=== PATIENT | male | born 1970 | race Caucasian/White ===

== ENCOUNTER 2020-02-23 23:17 | Emergency (ER) | payer OTHER, SELFPAY ==
[2020-02-23 23:21] VITALS: PULSE 62; RESP 20; TEMP 36.4; O2SAT 100
[2020-02-23 23:29] VITALS: BP 128/79; PULSE 64; RESP 16; O2SAT 100
--- NOTE | 2020-02-23 23:32 | ED.DIZZY ---
HPI - Dizziness General Chief Complaint: Dizziness Stated Complaint: dizziness tonight Time Seen by Provider: 02/23/20 23:21 Source: patient Mode of arrival: ambulatory Limitations: no limitations History of Present Illness HPI Narrative: This patient is a 49 year old male who presents for evaluation of vertigo. He reports starting 2 days ago he was having intermittent small episodes of vertigo. Tonight while at work he had an episode with nausea and room spinning. He reports history of vertigo in the past, and he did not want to let episode become as severe. He denies having dizziness now. He denies focal deficits, headache, nausea or vomiting. Related Data Allergies Allergy/AdvReac Type Severity Reaction Status Date / Time No Known Allergies Allergy Verified 02/23/20 23:30 Review of Systems Review of Systems: All systems reviewed & are unremarkable except as noted in HPI and below Constitutional: Constitutional: Denies chills and Denies fever(s) Eyes: Eyes: Reports no additional eye complaints ENT: Denies nasal congestion and Denies sore throat Cardiovascular: Cardiovascular: Denies chest pain Respiratory: Respiratory: Denies dyspnea Gastrointestinal: Gastrointestinal: Denies abdominal pain, Denies nausea and Denies vomiting Neurologic: Reports vertigo, Reports dizziness, Denies headache(s), Denies focal weakness, Denies numbness and Denies weakness PMFSH Past Medical History Medical History (Updated 02/24/20 @ 00:40 by Cecille Nolen MD) Heart block Pacemaker Surgical History Surgical History (Updated 02/23/20 @ 23:33 by Cecille Nolen MD) H/O neck surgery Social History Social History (Updated 02/23/20 @ 23:33 by Cecille Nolen MD) Smoking status: Current every day smoker Alcohol intake: current Alcohol use details: occasional Exam Narrative: Exam Narrative: GENERAL: Well-appearing, well-nourished, and in no acute distress. HEAD: Normocephalic, atraumatic EYES: PERRLA and EOMI, conjunctiva clear without discharge EARS: TM's clear bilaterally without erythema or dullness NOSE: Nares clear, no rhinorrhea or epistaxis THROAT:Mucous membranes moist, Oropharynx normal without erythema, exudate, peritonsillar swelling or fluctuance NECK: Supple, without lymphadenopathy or mass RESPIRATORY: No respiratory distress, Airway patent, Respirations non-labored, Clear to auscultation without rales, rhonchi or wheeze HEART: Regular rate and rhythm. No murmur heard. Normal peripheral pulses. ABDOMEN: Soft, nontender, nondistended, normal active bowel sounds. No masses. No rebound or guarding, No organomegaly. EXTREMITIES: No edema, normal strength with full range of motion. SKIN: Warm, dry, normal color without rash NEURO: Alert and oriented x3. CN 2-12 grossly intact. No focal deficits. steady gait PSYCH: Normal mood and affect. Course Reevaluation(s) Reevaluation #1: PAtient continues to have no vertigo. He is able to ambulate with steady gait. Date: 02/24/20 Time: 00:40 Vital Signs Vital signs: Vital Signs Temperature 97.6 F 02/23/20 23:21 Pulse Rate 62 02/23/20 23:21 Respiratory Rate 20 02/23/20 23:21 Pulse Oximetry 100 02/23/20 23:21 Temperature 97.6 F 02/23/20 23:21 Pulse Rate 57 L 02/24/20 00:53 Respiratory Rate 16 02/24/20 00:53 Blood Pressure 115/70 02/24/20 00:53 Pulse Oximetry 99 02/24/20 00:53 MDM - Dizziness ECG Data EKG #1: Attestation: I personally reviewed and interpreted this ECG as follows: ECG completion date: 02/23/20 ECG completion time: 23:24 EKG Interpretation: bradycardia (58), sinus rhythm, no ST changes and NL axis Discharge Plan Discharge Clinical Impression: Benign paroxysmal positional vertigo Patient Disposition: Home, Self-Care Condition: Stable Instructions: Antibiotic Form, Benign Paroxysmal Positional Vertigo (ED), Dizziness (ED) Prescriptions: New
--- NOTE | 2020-02-23 23:34 | ECG_ITS ---
Measurements Intervals [place] Rate: 58 P: 75 NV: 151 QRS: 58 QRSD: 90 T: 49 QT: 390 QTc: 383 Interpretive Statements SINUS BRADYCARDIA EARLY PRECORDIAL R/S TRANSITION BORDERLINE ECG Electronically Signed On 02-24-2020 6:56:38 CDT by Ino Peterson D.O.
[2020-02-23] MEDS: ONDANSETRON HCL ODT 4 MG TABLET PO (23:38)
[2020-02-23] MEDS: MECLIZINE HCL 25 MG TABLET PO (23:38)
--- NOTE | 2020-02-24 00:13 | PC.NURSE ---
This nurse went to re-evaluate patient after med administration and patient states I feel much better. It's weird, but I feel much better. ERP notified.
[2020-02-24 00:53] VITALS: BP 115/70; PULSE 57; RESP 16; O2SAT 99
== END 2020-02-24 00:52 | disposition home or self-care (01) ==
PROVIDERS: Emergency Provider General Practice
DX: H81.10 Benign paroxysmal vertigo, unspecified ear (principal); Z95.0 Presence of cardiac pacemaker; F17.200 Nicotine dependence, unspecified, uncomplicated; R00.1 Bradycardia, unspecified
CPT/HCPCS: 93005; 99283; A9270

== ENCOUNTER 2022-08-03 21:06 | Emergency (ER) | payer OTHER, SELFPAY ==
[2022-08-03 21:08] VITALS: BP 134/65; PULSE 69; RESP 16; TEMP 36.3; O2SAT 100
--- NOTE | 2022-08-03 21:31 | ED.EAR ---
HPI - Ear Problem General Chief complaint: Ear Stated complaint: HEARING LOSS POST COLD S/S Time Seen by Provider: 08/03/22 21:09 History of Present Illness HPI Narrative: 52-year-old male reports for bilateral hearing loss for 1 week. Hearing loss has progressively gotten worse since the onset of symptoms. Patient states prior to his hearing loss, he had cough congestion and cold-like symptoms. States that symptoms have since resolved but the hearing loss has persisted. He does note that he had similar episode in May 2022 that spontaneously resolved after a few days. He has never been evaluated by an ENT. He does report he has intermittent positional vertigo and tinnitus. Denies ear pain, headache, vision changes, neck pain, chest pain, shortness of breath, abdominal pain, nausea, vomiting, diarrhea, focal numbness or weakness. patient notes he has multiple family members with M?ni?re's disease. Pt reports a few meclizine pills left at home. Related Data Allergies Allergy/AdvReac Type Severity Reaction Status Date / Time No Known Allergies Allergy Verified 08/03/22 21:10 Review of Systems Review of Systems: CONSTITUTIONAL: Denies fever, chills EYES: Denies visual changes, redness, or discharge. ENT: Denies rhinorrhea, sore throat, or otalgia. CARDIOVASCULAR: Denies chest pain, palpitations, or edema. RESPIRATORY: Denies cough or dyspnea. GASTROINTESTINAL: Denies abdominal pain, nausea, vomiting, or diarrhea. GENITOURINARY: Denies dysuria or hematuria. SKIN: Denies rash or itching. MUSCULOSKELETAL: Denies back pain, joint pain, or myalgia. NEUROLOGIC: Denies headache, numbness, dizziness, or weakness. PSYCHIATRIC: Denies anxiety or depression. PMFSH Past Medical History Medical History Heart block Pacemaker Surgical History Surgical History H/O neck surgery Social History Social History Smoking status: Current every day smoker Alcohol intake: current Alcohol use details: occasional Exam Narrative: GENERAL: Well-appearing, well-nourished, and in no acute distress. HEAD: Normocephalic, atraumatic. EYES: PERRLA and EOMI. ENT: Nares clear, no rhinorrhea or epistaxis. Mucous membranes moist. Oropharynx without tonsillar hypertrophy exudate or other lesions. No lesions or rash to external ear. Bilateral TMs intact. Serous effusions bilaterally. Loss of light reflex. Right TM with cholesteatoma. No TM injection, erythema or bulging. Bilateral ear canals without rash, erythema, edema. No tenderness over frontal or maxillary sinuses. NECK: Supple. No adenopathy or masses. CHEST: Clear to auscultation. No respiratory distress. No wheezes rales or rhonchi HEART: Regular rate and rhythm. No murmur heard. Normal peripheral pulses. ABDOMEN: Soft, nontender, nondistended, normal active bowel sounds. EXTREMITIES: Normal range of motion. No edema. SKIN: Warm, dry, no rash. NEURO: No focal deficits. Alert and oriented x3. PSYCH: Normal mood and affect. Course Vital Signs Vital signs: Vital Signs Temperature 97.3 F L 08/03/22 21:08 Pulse Rate 69 08/03/22 21:08 Respiratory Rate 16 08/03/22 21:08 Blood Pressure 134/65 08/03/22 21:08 Pulse Oximetry 100 08/03/22 21:08 Oxygen Delivery Room Air 08/03/22 21:08 Temperature 97.3 F L 08/03/22 21:08 Pulse Rate 69 08/03/22 21:08 Respiratory Rate 16 08/03/22 21:08 Blood Pressure 134/65 08/03/22 21:08 Pulse Oximetry 100 08/03/22 21:08 Oxygen Delivery Room Air 08/03/22 21:08 Medical Decision Making MDM Narrative Medical decision making narrative: 52-year-old male reports for bilateral hearing loss progressive over 1 week after recovering from cough, congestion, cold-like symptoms. He does report associated positional vertigo and tinnitus. Exam reve
== END 2022-08-03 22:10 | disposition home or self-care (01) ==
PROVIDERS: Emergency Provider Physician Assistant
DX: H65.03 Acute serous otitis media, bilateral (principal); Z95.0 Presence of cardiac pacemaker; F17.200 Nicotine dependence, unspecified, uncomplicated
CPT/HCPCS: 99283

== ENCOUNTER 2023-01-08 14:53 | Emergency (ER) | payer OTHER, SELFPAY ==
[2023-01-08 15:08] VITALS: BP 142/80; PULSE 88; RESP 16; TEMP 36.8; O2SAT 100
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
[2023-01-08] MEDS: SILVER SULFADIAZINE 1% CR 50 GM JAR (*BKC) 1 APPLIC TOPICAL (15:52)
== END 2023-01-08 15:47 | disposition home or self-care (01) ==
PROVIDERS: Emergency Provider Nurse Practitioner Family
DX: T23.572A Corrosion of first degree of left wrist, initial encounter (principal); T23.571A Corrosion of first degree of right wrist, initial encounter; Y99.9 Unspecified external cause status; F17.210 Nicotine dependence, cigarettes, uncomplicated; Z95.0 Presence of cardiac pacemaker
CPT/HCPCS: 16000; 99213; A9270; G0463

== ENCOUNTER 2023-01-11 15:11 | Emergency (ER) | payer OTHER, SELFPAY ==
[2023-01-11 15:22] VITALS: BP 117/85; PULSE 73; RESP 16; TEMP 36.8; O2SAT 100
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
== END 2023-01-11 15:55 | disposition home or self-care (01) ==
PROVIDERS: Emergency Provider Nurse Practitioner Family
DX: T23.4 Corrosion of unspecified degree of wrist and hand (principal); L08.9 Local infection of the skin and subcutaneous tissue, unspecified; F17.210 Nicotine dependence, cigarettes, uncomplicated; Z95.0 Presence of cardiac pacemaker; I45.9 Conduction disorder, unspecified
CPT/HCPCS: 99213; G0463